=== PATIENT | male | born 1940 | race Caucasian/White ===

== ENCOUNTER 2017-04-16 07:48 | Day surgery (SDC) | payer MEDICARE, BC ==
[~2017-04-16 07:48] MED LIST: ALLERGY10 M1 PO; ASPIRIN 81MG TA81 MG PO; ATENOLOL25 MG PO; BENADRYL 50MG C50 MG PO; CARDURA8 MG PO; CIPROFLOXACIN500 MG PO; LISINOPRIL2.5 MG PO; LORAZEPAM0.5 MG/TAB FT; LORTAB 5/500 501 TAB PO; LOVASTATIN40 MG PO; NATURE'S BLEND400 I1 PO; NYSTATIN AND TR1 CRE TP; PRILOSEC OTC20 MG PO; QUALITY CHOICE600 M1 PO; SEPTRA DS 800 M1 TAB PO; TRICOR145 M1 PO; VOLTAREN1% TP
[2017-04-16 08:20] LABS: LYMPH # 2.1 K/mm3 (0.7-4.5); LYMPH % 26.7 % (10-50)
[2017-04-16 08:26] LABS: BUN 52 mg/dL (7-18)
[2017-04-16 08:27] LABS: GFR (ESTIMATED) 24 ML/MIN (>60)
--- NOTE | 2017-04-16 13:15 | RADIOLOGY REPORT PS360 ---
CARDIAC CATHETERIZATION DATE OF CATHETERIZATION:04/16/2017 12:46 PM PROCEDURES: 1. Left heart catheterization 2. Left ventriculogram 3. Selective coronary angiogram 4. Drug-eluting stent deployment to the proximal mid left anterior descending artery 5. Drug-eluting stent deployment to the ostial proximal large first diagonal artery INDICATION FOR TEST: 1. Coronary artery disease 2. Abnormal high risk noninvasive testing with multi segmental wall motion abnormality and depressed ejection fraction 3. Angina pectoris class III and IV Informed consent was obtained prior to the procedure. COMPLICATIONS: None ESTIMATED BLOOD LOSS: Less than 10 ml. TECHNIQUE: One percent lidocaine was used to anesthetize the right groin. The right femoral artery was accessed via the Seldinger technique. A 4-Arabic sheath was placed in the right femoral artery. A JL 4 JR4 catheter were used to perform left heart catheterization left ventriculogram and selective coronary angiography. At the end of the diagnostic angiogram 9,000 units of heparin was administered intravenously and the ACT was initially out of range over 400. The closing ACT at the end of the interventional procedure was 334 seconds. After the 4 Arabic sheath was exchanged for a 6 Arabic sheath in EBU 3.75 guide catheter was placed in the left main artery is PT extra-support wire was placed in the distal LAD. A 3 mm x 30 mm resolute Flint stent was placed across the lesion within suddenly patient became awake very combative disoriented in started sitting up straight on the table. It took 6 different personnel to hold patient down. Versed was given while patient was in a very disturbed delirious highly combative state screaming and yelling. Anesthesia was summoned to the [employer] stat and propofol was eventually given under anesthesia distraction allowing patient to become sedate. This whole or deal took approximately 10 minutes. Following this the stent was taken back from the guide catheter and placed back into the proximal mid LAD and deployed at 20 reyna. An additional 3 mm x 12 mm resolute Flint stent was placed distal to the first stent overlapping the stent and deployed at 16 reyna the balloon was brought back and measures to 20 reyna. The wire was then pulled back placed in the first diagonal artery and a 2.5 x 2 mm balloon was taken to 16 reyna to predilate. Following this a 3 mm x 15 mm resolute Santiago stent was placed in the proximal LAD extending into the first diagonal artery and deployed at 20 reyna. The wire was then pulled back and placed down into the LAD and a 3.25 x 12 mm noncompliant balloon was deployed at 20 reyna in the proximal and mid LAD crossing the large first diagonal artery. Excellent angiographic results were obtained with LILIAN-3 flow down the vessel before and after the procedure. At the end of procedure the apparatus was removed the groin is reprepped closure changed sheath was removed good hemostasis was achieved using Angio-Seal device patient transferred the postop holding area in stable condition ANGIOGRAPHIC RESULTS: 1. The left main artery is ostially normal with a distal 20% tapering. 2. The left anterior descending artery has a proximal eccentric 20-30% stenosis followed by a concentric 80% stenosis immediately after a large first diagonal artery. There are additional 40% mid vessel stenoses. The first diagonal artery is a large 3 mm branch and has an ostial 70-80% stenosis followed by an additional mid vessel eccentric 50% stenosis. 3. The circumflex artery gives rise to a high first obtuse marginal artery which has proximal 40 and 30% stenoses with a 99% stenosis in the second obtuse marginal artery 4. The right coronary artery is a large dominant vessel and has a mid vessel concentric 40% stenosis with mild vascular ectasia distally. The posterior descending artery has 30% stenoses 5. The BRANCH ventriculogram reveals moderate left ventricular dilatation with reduced ejection fraction estimated at 40% 6. The left ventricular end-diastolic pressure severely elevated at 35 mmHg IMPRESSION: 1. Severe 2 vessel coronary artery disease as described above 2. Successful stenting the proximal and mid LAD severe disease reduced to less than 10% with 2 drug-eluting stents 3. Successful drug-eluting stenting of the ostial proximal large first diagonal artery severe disease reduced to less than 10% with 1 drug-eluting stent the bifurcating manner as described above 4. Persistent severe stenosis in the second obtuse marginal artery 5. Left ventricular dilatation with reduced ejection fraction 6. Severely elevated LVEDP PLAN: 1. Length and aspirin 2. Patient requires diuresis because of his elevated LVEDP 3. I would like for him to be monitored overnight because of his high risk procedure and chronic renal failure creatinine 2.6 and systolic heart failure. 4. Standard therapy for systolic heart failure 5. In 2-4 weeks patient will be brought back to the [employer] [facility] will undergo stenting of the circumflex artery. Patient has severe left ventricular dysfunction and would benefit from complete revascularization. Because of his elevated creatinine I did not want to subject him to any additional contrast used. This must be done in a staged procedure for multiple patient safety 6. Cardiac Rehabilitation 7. LDL less than 55 8. Avoidance of tobacco products 9. Chemistry panel in the morning to assess creatinine
[2017-04-16 17:28] VITALS: BP 144/86
== END 2017-04-16 17:32 | disposition home or self-care (01) ==
LOC: CATHLAB 07:48
PROVIDERS: Internal Medicine
PROC: B2111ZZ Fluoroscopy of Multiple Coronary Arteries using Low Osmolar Contrast (ICD-10-PCS; 2017-04-16)
PROC: B2151ZZ Fluoroscopy of Left Heart using Low Osmolar Contrast (ICD-10-PCS; 2017-04-16)
PROC: 027035Z Dilation of Coronary Artery, One Artery with Two Drug-eluting Intraluminal Devices, Percutaneous Approach (ICD-10-PCS; 2017-04-16)
PROC: 4A023N7 Measurement of Cardiac Sampling and Pressure, Left Heart, Percutaneous Approach (ICD-10-PCS; principal; 2017-04-16 09:45)
DX: I25.119 Atherosclerotic heart disease of native coronary artery with unspecified angina pectoris (principal); R07.9 Chest pain, unspecified; I50.30 Unspecified diastolic (congestive) heart failure; E11.9 Type 2 diabetes mellitus without complications; R00.2 Palpitations; I27.2 Other secondary pulmonary hypertension; N18.3 Chronic kidney disease, stage 3 (moderate)
CPT/HCPCS: C1725; C1760; C1769; C1876; C1894; J1644; J2405; Q9967

== ENCOUNTER → 2017-06-01 | Outpatient (CLI) | payer MEDICARE, BC ==
--- NOTE | 2017-06-01 21:32 | RADIOLOGY REPORT PS360 ---
PROCEDURE: 2-D M-mode and color Doppler study INDICATIONS FOR THE TEST: Chest pain COPD Heart Murmur+ Tobacco Smokingex Palpitations+ Fatigue Syncope Edema+ Hypertension+Diabetes Mellitus+ Rheumatic Fever? SOB+ALBARADO+Obesity Hyperlipidemia+ Family History HD+ Additional History 5 stents, CAD, dizziness, quit smoking 5 years ago PATIENT INFORMATION HEIGHT: 75 WEIGHT: 225 GENDER: Male B/P: 168/72 2-D/M-MODE INTERPRETATION: 2-D MEASUREMENTS OBSERVED VALUES IN CMS Right Ventricular Dimension (RVDd) 2.4 Interventricular Septum (Thickness)(IVsd) 1.3 Left Ventricular Internal Dimensions(LVIDd) 6.6 Left Ventricular Posterior Wall (Thickness)(LVPWd) 1.3 Aortic Root 2.9 Aortic Cusp Separation 1.8 Left Atrial Dimensions (LAD) 4.7 2D 1. Left atrium is moderately enlarged, left ventricle is mildly dilated, there is mild concentric left ventricular hypertrophy, visually estimated ejection fraction 40% there is marked hypo to akinesis involving the basal septum, inferior and inferolateral wall. 2. The right atrium and right ventricle are relatively normal size and function. 3. The aortic valve is minimally thickened and calcified, leaflet continue to display mobility. 4. The mitral and tricuspid valve leaflets are minimally thickened. 5. The pulmonic valve is poorly visualized. 6. No significant pericardial effusion noted. DOPPLER INTERROGATION: Doppler interrogation of the aortic, mitral and tricuspid valvular presence of mild aortic, mild mitral and tricuspid regurgitation, tricuspid and enteric velocity insufficient for calculation of the right ventricular systolic pressure, grade 1 diastolic dysfunction seen with tissue Doppler evidence of raised left atrial pressure. CONCLUSION: 1. Moderately enlarged left atrium, mildly dilated left ventricle, mild concentric left ventricular hypertrophy, visually estimated ejection fraction 40% with multiple segmental wall motion abnormality described above, grade 1 diastolic dysfunction seen with tissue Doppler evidence of raised left atrial pressure. 2. Mild aortic, mild mitral and tricuspid regurgitation. 3. No significant pericardial effusion noted.
== END ==
LOC: RT 12:46
DX: R06.02 Shortness of breath (principal); E78.5 Hyperlipidemia, unspecified; N18.9 Chronic kidney disease, unspecified; I10 Essential (primary) hypertension; I25.10 Atherosclerotic heart disease of native coronary artery without angina pectoris

== ENCOUNTER 2017-08-06 16:12 | Emergency (ER) | payer MEDICARE, BC ==
[~2017-08-06] VITALS: Ht 182.9 cm; Wt 99.8 kg
--- OUTSIDE RECORDS SUMMARY | 2017-08-06 16:27 | External Medical Summary Rpt | CCD ---
Author Author , HEATHER ROMERO Address Unknown Phone [email or web address] Purpose Continuity of Care Document - 04-02-2017 through 2016 Problems Code Diagnosis DOS Provider Status E03.9 HYPOTHYROID ISM, UNSPECIFIED R06.02 SHORTNESS OF BREATH R07.9 CHEST PAIN, UNSPECIFIED Results Labs Lab Lab Date Result Refere Interp Status Commen Order Detail nces retati t Range on Urinalysis dipstick W Reflex Microscopic panel in Urine (04-29-2017 10:15) Bacteri TRACE O complet a 017 ed [Presen 10:15 ce] in Urine sedimen t by Light microsc opy Erythro NONE 0 complet cytes 017 ed [Presen 10:15 ce] in Urine sedimen t by Light microsc opy Epithel OCC OCC complet ial 017 ed cells.s 10:15 quamous [Presen ce] in Urine sedimen t by Microsc opy high power field Urinalysis dipstick W Reflex Microscopic panel in Urine (04-29-2017 10:15) Appeara CLEAR CLEAR complet nce of 017 ed Urine 10:15 Bilirub NEGATIV NEG complet in 017 E ed [Presen 10:15 ce] in Urine by Test strip Erythro NEGATIV NEG complet cytes 017 E ed [Presen 10:15 ce] in Urine Color YELLOW YELLOW complet of 017 ed Urine 10:15 Ketones NEGATIV NEG complet 017 E ed [Presen 10:15 ce] in Urine by Automat ed test strip Mucus NEGATIV NEG complet [Presen 017 E ed ce] in 10:15 Urine sedimen t by Light microsc opy Nitrite NEGATIV NEG complet 017 E ed [Presen 10:15 ce] in Urine by Test strip Urobili 0.2 NEG complet david 017 ed [Presen 10:15 ce] in Urine by Test strip
--- OUTSIDE RECORDS SUMMARY | 2017-08-06 16:27 | External Medical Summary Rpt | CCD ---
Author Author [facility] Address Unknown Phone Unavailable Purpose Continuity of Care Document - through 2016
--- OUTSIDE RECORDS SUMMARY | 2017-08-06 16:27 | External Medical Summary Rpt | CCD ---
Demographics Preferred Language Citizen Of [place] Marital Status Unknown Zoroastrianism Affiliation Unknown Race Unknown Ethnic Group Unknown Author Author , HEATHER ROMERO Address Unknown Phone Immunization No patient found.
--- OUTSIDE RECORDS SUMMARY | 2017-08-06 16:27 | External Medical Summary Rpt | CCD ---
Demographics Preferred Language Tongan Marital Status Unknown Anabaptism Affiliation Unknown Race Unknown Ethnic Group Unknown Author Author , HEATHER ROMERO Address Unknown Phone Immunization No patient found.
--- OUTSIDE RECORDS SUMMARY | 2017-08-06 16:27 | External Medical Summary Rpt | CCD ---
Author Author , HEATHER ROMERO Address Unknown Phone [email or web address] Purpose Continuity of Care Document - 04-02-2017 [...]
--- OUTSIDE RECORDS SUMMARY | 2017-08-06 16:28 | External Medical Summary Rpt ---
Author Author STEVANJAN Villa, [employer] Address Unknown Phone Unavailable Results Basic metabolic panel in Blood Observa Value Referen Units Interpr Notes Date tion ce etation Range Urea 7 - 18 mg/dL High No Sep 21 nitrogen informati 2017 2:01 [Mass/vol on in PM ume] in source Serum or data Plasma Calcium 8.5 - mg/dL Low No Sep 21 [Mass/vol 10.1 informati 2017 2:01 ume] in on in PM Serum or source Plasma data Chloride 98 - 107 mmoL/L Normal No Sep 21 [Moles/vo informati 2017 2:01 lume] in on in PM Serum or source Plasma data Carbon 21.0 - mmoL/L Normal No Sep 21 dioxide, 32.0 informati 2017 2:01 total on in PM [Moles/vo source lume] in data Serum or Plasma Creatinin 0.70 - mg/dL High No Sep 21 e 1.30 informati 2017 2:01 [Mass/vol on in PM ume] in source Serum or data Plasma Estimated >60 ML/MIN No REFERENCE Sep 21 informati RANGE: 2017 2:01 glomerula on in >60 PM r source ML/MIN/1. filtratio data 73 SQUARE n rate METERSIf (GF this patient is -A merican, then multiply theresult by 1.210. Glucose 74 - 106 mg/dL High No Sep 21 [Mass/vol informati 2017 2:01 ume] in on in PM Serum or source Plasma data Potassium 3.5 - 5.1 mmoL/L Normal No Sep 21 informati 2017 2:01 [Moles/vo on in PM lume] in source Serum or data Plasma Sodium 136 - 145 mmoL/L Normal No Sep 21 [Moles/vo informati 2017 2:01 lume] in on in PM Serum or source Plasma data CBC W Auto Differential panel in Blood Observa Value Referen Units Interpr Notes Date tion ce etation Range Basophils 0 - 0.2 K/MM3 Normal No Sep 21 informati 2017 2:01 [#/volume on in PM ] in source Blood by data Automated count Basophils 0.1 - 2.0 % Normal No Sep 21 /100 informati 2016 2:01 leukocyte on in PM s in source Blood by data Automated count Eosinophi 0.0 - 0.4 K/mm3 Normal No Sep 21 ls informati 2016 2:01 [#/volume on in PM ] in source Blood by data Automated count Eosinophi 0.1 - % Normal No Sep 21 ls/100 12.0 informati 2016 2:01 leukocyte on in PM s in source Blood by data Automated count Granulocy 1.3 - 8.0 K/mm3 Normal No Sep 21 rufina informati 2016 2:01 [#/volume on in PM ] in source Blood by data Automated count Granulocy 37.0 - % Normal No Sep 21 rufina/100 80.0 informati 2016 2:01 leukocyte on in PM s in source Blood by data Automated count Hematocri 42.0 - % Low No Sep 21 t [Volume 52.0 informati 2016 2:01 on in PM Fraction] source of Blood data Hemoglobi 14.1 - g/dL Low No Sep 21 n 18.0 informati 2016 2:01 [Mass/vol on in PM ume] in source Blood data Lymphocyt 0.7 - 4.5 K/mm3 Normal No Sep 21 es informati 2017 2:01 [#/volume on in PM ] in source Unspecifi data ed specimen by Automated count Lymphocyt 10 - 50 % Normal No Sep 21 es informati 2017 2:01 [#/volume on in PM ] in source Unspecifi data ed specimen by Automated count Erythrocy 27 - 31.2 pg Normal No Sep 21 te mean informati 2017 2:01 corpuscul on in PM ar source hemoglobi data n [Entitic mass] Erythrocy 31.8 - g/dl Normal No Sep 21 te mean 35.4 informati 2017 2:01 corpuscul on in PM ar source hemoglobi data n concentra tion [Mass/vol ume] by Automated count Erythrocy 82.2 - fl Normal No Sep 21 te mean 97.8 informati 2016 2:01 corpuscul on in PM ar volume source [Entitic data volume] by Automated count Monocytes 0.1 - 1.0 K/mm3 Normal No Sep 21 informati 2017 2:01 [#/volume on in PM ] in source Blood by data Automated count Monocytes 1.7 - 9.3 % Normal No Sep 21 /100 informati 2017 2:01 leukocyte on in PM s in source Blood by data Automated count Platelet 7.4 - fl Low No May 21 mean 10.4 informati 2017 2:01 volume on in PM [Entitic source volume] data in Blood by Automated count Platelets 142 - 424 K/mm3 Normal No Sep 21 informati 2017 2:01 [#/volume on in PM ] in source Blood data Erythrocy 4.6 - 6.2 M/mm3 Low No Sep 21 rufina informati 2017 2:01 [#/volume on in PM ] in source Amniotic data fluid Erythrocy 11.5 - % Normal No May 21 te 17.5 informati 2017 2:01 distribut on in PM ion width source [Entitic data volume] by Automated count Leukocyte 4.8 - K/MM3 Normal No May 21 s 10.8 informati 2016 2:01 [#/volume on in PM ] in source Blood data Basic metabolic panel in Blood Observa Value Referen Units Interpr Notes Date tion ce etation Range Urea 7 - 18 mg/dL High No Apr 30 nitrogen informati 2016 7:12 [Mass/vol on in AM ume] in source Serum or data Plasma Calcium 8.5 - mg/dL Normal No Apr 30 [Mass/vol 10.1 informati 2017 7:12 ume] in on in AM Serum or source Plasma data Chloride 98 - 107 mmoL/L High No Apr 30 [Moles/vo informati 2016 7:12 lume] in on in AM Serum or source Plasma data Carbon 21.0 - mmoL/L Normal No Apr 30 dioxide, 32.0 informati 2016 7:12 total on in AM [Moles/vo source lume] in data Serum or Plasma Creatinin 0.70 - mg/dL High No Apr 30 e 1.30 informati 2016 7:12 [Mass/vol on in AM ume] in source Serum or data Plasma Creatinin 50 - 200 ML/MIN Low No Apr 30 e renal informati 2016 7:12 clearance on in AM source predicted data by Cockcroft -Gault formula Estimated >60 ML/MIN No REFERENCE Apr 30 informati RANGE: 2017 7:12 glomerula on in >60 AM r source ML/MIN/1. filtratio data 73 SQUARE n rate METERSIf (GF this patient is -A merican, then multiply theresult by 1.210. Glucose 74 - 106 mg/dL High No Apr 30 [Mass/vol informati 2016 7:12 ume] in on in AM Serum or source Plasma data Potassium 3.5 - 5.1 mmoL/L Normal No Apr 30 informati 2016 7:12 [Moles/vo on in AM lume] in source Serum or data Plasma Sodium 136 - 145 mmoL/L Normal No Apr 30 [Moles/vo informati 2016 7:12 lume] in on in AM Serum or source Plasma data Urinalysis dipstick W Reflex Microscopic panel in Urine Observa Value Referen Units Interpr Notes Date tion ce etation Range Collected by nurse? Y Hold specimen in OE? N Appeara CLEAR CLEAR No No No Apr 29 nce of informa informa informa 2016 Urine tion in tion in tion in 10:15 source source source AM data data data Bacteri TRACE O No No No Apr 29 a informa informa informa 2016 [Presen tion in tion in tion in 10:15 ce] in source source source AM Urine data data data sedimen t by Light microsc opy Bilirub NEGATIV NEG No No No Apr 29 in E informa informa informa 2016 [Presen tion in tion in tion in 10:15 ce] in source source source AM Urine data data data by Test strip Erythro NEGATIV NEG No No No Apr 29 cytes E informa informa informa 2016 [Presen tion in tion in tion in 10:15 ce] in source source source AM Urine data data data Color YELLOW YELLOW No No No Apr 29 of informa informa informa 2016 Urine tion in tion in tion in 10:15 source source source AM data data data Glucose NEG No No No Apr 29 [Mass/vol informati informati informati 2016 ume] in on in on in on in 10:15 AM Urine by source source source Test data data data strip Ketones NEGATIV NEG mg/dL No No Apr 29 E informa informa 2016 [Presen tion in tion in 10:15 ce] in source source AM Urine data data by Automat ed test strip Mucus NEGATIV NEG No No No Apr 29 [Presen E informa informa informa 2017 ce] in tion in tion in tion in 10:15 Urine source source source AM sedimen data data data t by Light microsc opy Nitrite NEGATIV NEG No No No Apr 29 E informa informa informa 2016 [Presen tion in tion in tion in 10:15 ce] in source source source AM Urine data data data by Test strip pH of 5.0 - 8.5 No Normal No Apr 29 Urine informati informati 2017 on in on in 10:15 AM source source data data Protein NEG mg/dL High No Apr 29 [Mass/vol informati 2017 ume] in on in 10:15 AM Urine by source Automated data test strip Erythro NONE 0 rbc/hpf No No Apr 29 cytes informa informa 2016 [Presen tion in tion in 10:15 ce] in source source AM Urine data data sedimen t by Light microsc opy Specific 1.005 - No Normal No Apr 29 gravity 1.030 informati informati 2016 of Urine on in on in 10:15 AM source source data data Epithel OCC OCC #/hpf No No Apr 29 ial informa informa 2017 cells.s tion in tion in 10:15 quamous source source AM data data [Presen ce] in Urine sedimen t by Microsc opy high power field Urobili 0.2 NEG E.U./dL No No Apr 29 nogen informa informa 2016 [Presen tion in tion in 10:15 ce] in source source AM Urine data data by Test strip Leukocyte O wbc/hpf No No Apr 29 s informati informati 2016 [#/volume on in on in 10:15 AM ] in source source Urine data data Urinalysis dipstick W Reflex Microscopic panel in Urine Observa Value Referen Units Interpr Notes Date tion ce etation Range Collected by nurse? Y Hold specimen in OE? N Appeara CLEAR CLEAR No No No Apr 29 nce of informa informa informa 2017 Urine tion in tion in tion in 10:15 source source source AM data data data Bilirub NEGATIV NEG No No No Apr 29 in E informa informa informa 2017 [Presen tion in tion in tion in 10:15 ce] in source source source AM Urine data data data by Test strip Erythro NEGATIV NEG No No No Apr 29 cytes E informa informa informa 2017 [Presen tion in tion in tion in 10:15 ce] in source source source AM Urine data data data Color YELLOW YELLOW No No No Apr 29 of informa informa informa 2017 Urine tion in tion in tion in 10:15 source source source AM data data data Glucose NEG No No No Apr 29 [Mass/vol informati informati informati 2017 ume] in on in on in on in 10:15 AM Urine by source source source Test data data data strip Ketones NEGATIV NEG mg/dL No No Apr 29 E informa informa 2017 [Presen tion in tion in 10:15 ce] in source source AM Urine data data by Automat ed test strip Mucus NEGATIV NEG No No No Apr 29 [Presen E informa informa informa 2017 ce] in tion in tion in tion in 10:15 Urine source source source AM sedimen data data data t by Light microsc opy Nitrite NEGATIV NEG No No No Apr 29 E informa informa informa 2016 [Presen tion in tion in tion in 10:15 ce] in source source source AM Urine data data data by Test strip pH of 5.0 - 8.5 No Normal No Apr 29 Urine informati informati 2017 on in on in 10:15 AM source source data data Protein NEG mg/dL High No Apr 29 [Mass/vol informati 2016 ume] in on in 10:15 AM Urine by source Automated data test strip Specific 1.005 - No Normal No Apr 29 gravity 1.030 informati informati 2017 of Urine on in on in 10:15 AM source source data data Urobili 0.2 NEG E.U./dL No No Apr 29 nogen informa informa 2017 [Presen tion in tion in 10:15 ce] in source source AM Urine data data by Test strip Activated clotting time in Blood by Coagulation assay Observa Value Referen Units Interpr Notes Date tion ce etation Range Activated 74 - 125 SEC High No Apr 29 clotting alert informati 2016 9:01 time in on in AM Blood by source Coagulati data on assay Activated clotting time in Blood by Coagulation assay Observa Value Referen Units Interpr Notes Date tion ce etation Range Activated 74 - 125 SEC High No Apr 29 clotting alert informati 2016 8:32 time in on in AM Blood by source Coagulati data on assay Basic metabolic panel in Blood Observa Value Referen Units Interpr Notes Date tion ce etation Range Urea 7 - 18 mg/dL High No Apr 29 nitrogen informati 2016 6:55 [Mass/vol on in AM ume] in source Serum or data Plasma Calcium 8.5 - mg/dL Normal Apr 29 [Mass/vol 10.1 informati 2016 6:55 ume] in on in AM Serum or source Plasma data Chloride 98 - 107 mmoL/L Normal Apr 29 [Moles/vo informati 2016 6:55 lume] in on in AM Serum or source Plasma data Carbon 21.0 - mmoL/L Normal Apr 29 dioxide, 32.0 informati 2016 6:55 total on in AM [Moles/vo source lume] in data Serum or Plasma Creatinin 0.70 - mg/dL High No Apr 29 e 1.30 informati 2016 6:55 [Mass/vol on in AM ume] in source Serum or data Plasma Estimated >60 ML/MIN No REFERENCE Apr 29 informati RANGE: 2017 6:55 glomerula on in >60 AM r source ML/MIN/1. filtratio data 73 SQUARE n rate METERSIf (GF this patient is -A merican, then multiply theresult by 1.210. Glucose 74 - 106 mg/dL High No Apr 29 [Mass/vol informati 2016 6:55 ume] in on in AM Serum or source Plasma data Potassium 3.5 - 5.1 mmoL/L Normal No Apr 29 informati 2016 6:55 [Moles/vo on in AM lume] in source Serum or data Plasma Sodium 136 - 145 mmoL/L Normal Apr 29 [Moles/vo informati 2016 6:55 lume] in on in AM Serum or source Plasma data CBC W Auto Differential panel in Blood Observa Value Referen Units Interpr Notes Date tion ce etation Range Basophils 0 - 0.2 K/MM3 Normal No Apr 29 informati 2016 6:55 [#/volume on in AM ] in source Blood by data Automated count Basophils 0.1 - 2.0 % Normal No Apr 29 /100 informati 2017 6:55 leukocyte on in AM s in source Blood by data Automated count Eosinophi 0.0 - 0.4 K/mm3 Normal Apr 29 ls informati 2017 6:55 [#/volume on in AM ] in source Blood by data Automated count Eosinophi 0.1 - % Normal No Apr 29 ls/100 12.0 informati 2017 6:55 leukocyte on in AM s in source Blood by data Automated count Granulocy 1.3 - 8.0 K/mm3 Normal No Apr 29 rufina informati 2017 6:55 [#/volume on in AM ] in source Blood by data Automated count Granulocy 37.0 - % Normal No Apr 29 rufina/100 80.0 informati 2017 6:55 leukocyte on in AM s in source Blood by data Automated count Hematocri 42.0 - % Low No Apr 29 t [Volume 52.0 informati 2017 6:55 on in AM Fraction] source of Blood data Hemoglobi 14.1 - g/dL Low No Apr 29 n 18.0 informati 2017 6:55 [Mass/vol on in AM ume] in source Blood data Lymphocyt 0.7 - 4.5 K/mm3 Normal No Apr 29 es informati 2017 6:55 [#/volume on in AM ] in source Unspecifi data ed specimen by Automated count Lymphocyt 10 - 50 % Normal No Apr 29 es informati 2017 6:55 [#/volume on in AM ] in source Unspecifi data ed specimen by Automated count Erythrocy 27 - 31.2 pg Normal No Apr 29 te mean informati 2016 6:55 corpuscul on in AM ar source hemoglobi data n [Entitic mass] Erythrocy 31.8 - g/dl Normal No Apr 29 te mean 35.4 informati 2016 6:55 corpuscul on in AM ar source hemoglobi data n concentra tion [Mass/vol ume] by Automated count Erythrocy 82.2 - fl Normal No Apr 29 te mean 97.8 informati 2017 6:55 corpuscul on in AM ar volume source [Entitic data volume] by Automated count Monocytes 0.1 - 1.0 K/mm3 Normal No Apr 29 informati 2017 6:55 [#/volume on in AM ] in source Blood by data Automated count Monocytes 1.7 - 9.3 % Normal No Apr 29 /100 informati 2017 6:55 leukocyte on in AM s in source Blood by data Automated count Platelet 7.4 - fl Normal No Apr 29 mean 10.4 informati 2017 6:55 volume on in AM [Entitic source volume] data in Blood by Automated count Platelets 142 - 424 K/mm3 Normal No Apr 29 informati 2016 6:55 [#/volume on in AM ] in source Blood data Erythrocy 4.6 - 6.2 M/mm3 Low No Apr 29 rufina informati 2016 6:55 [#/volume on in AM ] in source Amniotic data fluid Erythrocy 11.5 - % Normal No Apr 29 te 17.5 informati 2016 6:55 distribut on in AM ion width source [Entitic data volume] by Automated count Leukocyte 4.8 - K/MM3 Normal No Apr 29 s 10.8 informati 2016 6:55 [#/volume on in AM ] in source Blood data Basic metabolic panel in Blood Observa Value Referen Units Interpr Notes Date tion ce etation Range Urea 7 - 18 mg/dL High No Apr 28 nitrogen informati 2016 3:15 [Mass/vol on in PM ume] in source Serum or data Plasma Calcium 8.5 - mg/dL Normal Apr 28 [Mass/vol 10.1 informati 2016 3:15 ume] in on in PM Serum or source Plasma data Chloride 98 - 107 mmoL/L Normal No Apr 28 [Moles/vo informati 2016 3:15 lume] in on in PM Serum or source Plasma data Carbon 21.0 - mmoL/L Normal No Apr 28 dioxide, 32.0 informati 2016 3:15 total on in PM [Moles/vo source lume] in data Serum or Plasma Creatinin 0.70 - mg/dL High No Apr 28 e 1.30 informati 2016 3:15 [Mass/vol on in PM ume] in source Serum or data Plasma Estimated >60 ML/MIN No REFERENCE Apr 28 informati RANGE: 2017 3:15 glomerula on in >60 PM r source ML/MIN/1. filtratio data 73 SQUARE n rate METERSIf (GF this patient is -A merican, then multiply theresult by 1.210. Glucose 74 - 106 mg/dL High No Apr 28 [Mass/vol informati 2016 3:15 ume] in on in PM Serum or source Plasma data Potassium 3.5 - 5.1 mmoL/L Normal No Apr 28 informati 2016 3:15 [Moles/vo on in PM lume] in source Serum or data Plasma Sodium 136 - 145 mmoL/L Normal No Apr 28 [Moles/vo informati 2016 3:15 lume] in on in PM Serum or source Plasma data CBC W Auto Differential panel in Blood Observa Value Referen Units Interpr Notes Date tion ce etation Range Basophils 0 - 0.2 K/MM3 Normal No Apr 28 inform2016 3:15 [#/volume on in PM ] in source Blood by data Automated count Basophils 0.1 - 2.0 % Normal No Apr 28 /100 informati 2016 3:15 leukocyte on in PM s in source Blood by data Automated count Eosinophi 0.0 - 0.4 K/mm3 Normal No Apr 28 ls informati 2016 3:15 [#/volume on in PM ] in source Blood by data Automated count Eosinophi 0.1 - % Normal No Apr 28 ls/100 12.0 informati 2016 3:15 leukocyte on in PM s in source Blood by data Automated count Granulocy 1.3 - 8.0 K/mm3 Normal No Apr 28 rufina informati 2016 3:15 [#/volume on in PM ] in source Blood by data Automated count Granulocy 37.0 - % Normal No Apr 28 rufina/100 80.0 informati 2016 3:15 leukocyte on in PM s in source Blood by data Automated count Hematocri 42.0 - % Low No Apr 28 t [Volume 52.0 informati 2016 3:15 on in PM Fraction] source of Blood data Hemoglobi 14.1 - g/dL Low No Apr 28 n 18.0 informati 2016 3:15 [Mass/vol on in PM ume] in source Blood data Lymphocyt 0.7 - 4.5 K/mm3 Normal No Apr 28 es informati 2016 3:15 [#/volume on in PM ] in source Unspecifi data ed specimen by Automated count Lymphocyt 10 - 50 % Normal No Apr 28 es informati 2016 3:15 [#/volume on in PM ] in source Unspecifi data ed specimen by Automated count Erythrocy 27 - 31.2 pg Normal No Apr 28 te mean informati 2016 3:15 corpuscul on in PM ar source hemoglobi data n [Entitic mass] Erythrocy 31.8 - g/dl Normal No Apr 28 te mean 35.4 informati 2016 3:15 corpuscul on in PM ar source hemoglobi data n concentra tion [Mass/vol ume] by Automated count Erythrocy 82.2 - fl Normal No Apr 28 te mean 97.8 informati 2016 3:15 corpuscul on in PM ar volume source [Entitic data volume] by Automated count Monocytes 0.1 - 1.0 K/mm3 Normal No Apr 28 informati 2016 3:15 [#/volume on in PM ] in source Blood by data Automated count Monocytes 1.7 - 9.3 % Normal No Apr 28 /100 informati 2016 3:15 leukocyte on in PM s in source Blood by data Automated count Platelet 7.4 - fl Low No Apr 28 mean 10.4 informati 2016 3:15 volume on in PM [Entitic source volume] data in Blood by Automated count Platelets 142 - 424 K/mm3 No Apr 28 informati informati 2016 3:15 [#/volume on in on in PM ] in source source Blood data data Erythrocy 4.6 - 6.2 M/mm3 Low No Apr 28 rufina informati 2016 3:15 [#/volume on in PM ] in source Amniotic data fluid Erythrocy 11.5 - % Normal Apr 28 te 17.5 informati 2016 3:15 distribut on in PM ion width source [Entitic data volume] by Automated count Leukocyte 4.8 - K/MM3 Normal Apr 28 s 10.8 informati 2016 3:15 [#/volume on in PM ] in source Blood data Activated clotting time in Blood by Coagulation assay Observa Value Referen Units Interpr Notes Date tion ce etation Range Activated 74 - 125 SEC High No Apr 16 clotting alert 2016 time in on in 12:38 PM Blood by source Coagulati data on assay Basic metabolic panel in Blood Observa Value Referen Units Interpr Notes Date tion ce etation Range Urea 7 - 18 mg/dL High No Apr 16 nitrogen informati 2016 8:00 [Mass/vol on in AM ume] in source Serum or data Plasma Calcium 8.5 - mg/dL Normal No Apr 16 [Mass/vol 10.1 informati 2016 8:00 ume] in on in AM Serum or source Plasma data Chloride 98 - 107 mmoL/L High No Apr 16 [Moles/vo informati 2016 8:00 lume] in on in AM Serum or source Plasma data Carbon 21.0 - mmoL/L Normal No Apr 16 dioxide, 32.0 informati 2016 8:00 total on in AM [Moles/vo source lume] in data Serum or Plasma Creatinin 0.70 - mg/dL High No Apr 16 e 1.30 informati 2016 8:00 [Mass/vol on in AM ume] in source Serum or data Plasma Estimated >60 ML/MIN No REFERENCE Apr 16 informati RANGE: 2017 8:00 glomerula on in >60 AM r source ML/MIN/1. filtratio data 73 SQUARE n rate METERSIf (GF this patient is -A merican, then multiply theresult by 1.210. Glucose 74 - 106 mg/dL Normal No Apr 16 [Mass/vol informati 2016 8:00 ume] in on in AM Serum or source Plasma data Potassium 3.5 - 5.1 mmoL/L Normal No Apr 16 inform2016 8:00 [Moles/vo on in AM lume] in source Serum or data Plasma Sodium 136 - 145 mmoL/L Normal No Apr 16 [Moles/vo informati 2016 8:00 lume] in on in AM Serum or source Plasma data CBC W Auto Differential panel in Blood Observa Value Referen Units Interpr Notes Date tion ce etation Range Basophils 0 - 0.2 K/MM3 Normal No Apr 16 inform2016 8:00 [#/volume on in AM ] in source Blood by data Automated count Basophils 0.1 - 2.0 % Normal No Apr 16 / informati 2016 8:00 leukocyte on in AM s in source Blood by data Automated count Eosinophi 0.0 - 0.4 K/mm3 Normal No Apr 16 ls ati 2016 8:00 [#/volume on in AM ] in source Blood by data Automated count Eosinophi 0.1 - % Normal No Apr 16 ls/100 12.0 informati 2016 8:00 leukocyte on in AM s in source Blood by data Automated count Granulocy 1.3 - 8.0 K/mm3 Normal No Apr 16 rufina informati 2016 8:00 [#/volume on in AM ] in source Blood by data Automated count Granulocy 37.0 - % Normal No Apr 16 rufina/100 80.0 informati 2016 8:00 leukocyte on in AM s in source Blood by data Automated count Hematocri 42.0 - % Low No Apr 16 t [Volume 52.0 informati 2016 8:00 on in AM Fraction] source of Blood data Hemoglobi 14.1 - g/dL Low No Apr 16 n 18.0 informati 2016 8:00 [Mass/vol on in AM ume] in source Blood data Lymphocyt 0.7 - 4.5 K/mm3 Normal No Apr 16 es informati 2016 8:00 [#/volume on in AM ] in source Unspecifi data ed specimen by Automated count Lymphocyt 10 - 50 % Normal No Apr 16 es informati 2016 8:00 [#/volume on in AM ] in source Unspecifi data ed specimen by Automated count Erythrocy 27 - 31.2 pg Normal No Apr 16 te mean informati 2016 8:00 corpuscul on in AM ar source hemoglobi data n [Entitic mass] Erythrocy 31.8 - g/dl Normal No Apr 16 te mean 35.4 informati 2016 8:00 corpuscul on in AM ar source hemoglobi data n concentra tion [Mass/vol ume] by Automated count Erythrocy 82.2 - fl Normal No Apr 16 te mean 97.8 informati 2016 8:00 corpuscul on in AM ar volume source [Entitic data volume] by Automated count Monocytes 0.1 - 1.0 K/mm3 Normal No Apr 16 informati 2016 8:00 [#/volume on in AM ] in source Blood by data Automated count Monocytes 1.7 - 9.3 % Normal No Apr 16 /100 informati 2017 8:00 leukocyte on in AM s in source Blood by data Automated count Platelet 7.4 - fl Normal No Apr 16 mean 10.4 informati 2016 8:00 volume on in AM [Entitic source volume] data in Blood by Automated count Platelets 142 - 424 K/mm3 Normal No Apr 16 informati 2016 8:00 [#/volume on in AM ] in source Blood data Erythrocy 4.6 - 6.2 M/mm3 Low No Apr 16 rufina informati 2017 8:00 [#/volume on in AM ] in source Amniotic data fluid Erythrocy 11.5 - % Normal No Apr 16 te 17.5 informati 2016 8:00 distribut on in AM ion width source [Entitic data volume] by Automated count Leukocyte 4.8 - K/MM3 Normal No Apr 16 s 10.8 informati 2016 8:00 [#/volume on in AM ] in source Blood data Basic metabolic panel in Blood Observa Value Referen Units Interpr Notes Date tion ce etation Range Urea 7 - 18 mg/dL High No Apr 13 nitrogen informati 2016 [Mass/vol on in 11:41 AM ume] in source Serum or data Plasma Calcium 8.5 - mg/dL Normal No Apr 13 [Mass/vol 10.1 informati 2016 ume] in on in 11:41 AM Serum or source Plasma data Chloride 98 - 107 mmoL/L Normal No Apr 13 [Moles/vo informati 2016 lume] in on in 11:41 AM Serum or source Plasma data Carbon 21.0 - mmoL/L Normal No Apr 13 dioxide, 32.0 informati 2017 total on in 11:41 AM [Moles/vo source lume] in data Serum or Plasma Creatinin 0.70 - mg/dL High No Apr 13 e 1.30 informati 2016 [Mass/vol on in 11:41 AM ume] in source Serum or data Plasma Estimated >60 ML/MIN No REFERENCE Apr 13 informati RANGE: 2017 glomerula on in >60 11:41 AM r source ML/MIN/1. filtratio data 73 SQUARE n rate METERSIf (GF this patient is -A merican, then multiply theresult by 1.210. Glucose 74 - 106 mg/dL High No Apr 13 [Mass/vol informati 2016 ume] in on in 11:41 AM Serum or source Plasma data Potassium 3.5 - 5.1 mmoL/L Normal No Apr 13 inform2016 [Moles/vo on in 11:41 AM lume] in source Serum or data Plasma Sodium 136 - 145 mmoL/L Normal No Apr 13 [Moles/vo informati 2016 lume] in on in 11:41 AM Serum or source Plasma data Basic metabolic panel in Blood Observa Value Referen Units Interpr Notes Date tion ce etation Range Urea 7 - 18 mg/dL High No Apr 02 nitrogen informati 2016 7:14 [Mass/vol on in AM ume] in source Serum or data Plasma Calcium 8.5 - mg/dL Normal No Apr 02 [Mass/vol 10.1 informati 2016 7:14 ume] in on in AM Serum or source Plasma data Chloride 98 - 107 mmoL/L Normal No Apr 02 [Moles/vo informati 2016 7:14 lume] in on in AM Serum or source Plasma data Carbon 21.0 - mmoL/L Normal No Apr 02 dioxide, 32.0 informati 2016 7:14 total on in AM [Moles/vo source lume] in data Serum or Plasma Creatinin 0.70 - mg/dL High No Apr 02 e 1.30 informati 2016 7:14 [Mass/vol on in AM ume] in source Serum or data Plasma Estimated >60 ML/MIN No REFERENCE Apr 02 informati RANGE: 2017 7:14 glomerula on in >60 AM r source ML/MIN/1. filtratio data 73 SQUARE n rate METERSIf (GF this patient is -A merican, then multiply theresult by 1.210. Glucose 74 - 106 mg/dL Normal No Apr 02 [Mass/vol informati 2016 7:14 ume] in on in AM Serum or source Plasma data Potassium 3.5 - 5.1 mmoL/L High No Apr 02 informati 2016 7:14 [Moles/vo on in AM lume] in source Serum or data Plasma Sodium 136 - 145 mmoL/L Normal No Apr 02 [Moles/vo informati 2016 7:14 lume] in on in AM Serum or source Plasma data Natriutietic peptide B [Mass/volume] in Serum or Plasma Observa Value Referen Units Interpr Notes Date tion ce etation Range Natriutie 0 - 100 pg/mL High No Apr 02 tic informati 2016 7:14 peptide B on in AM source [Mass/vol data ume] in Serum or Plasma Thyroxine (T4) free [Mass/volume] in Serum or Plasma Observa Value Referen Units Interpr Notes Date tion ce etation Range Thyroxine 0.76 - ng/dL Normal No Apr 02 (T4) 1.46 informati 2016 7:14 free on in AM [Mass/vol source ume] in data Serum or Plasma Thyrotropin [Units/volume] in Serum or Plasma Observa Value Referen Units Interpr Notes Date tion ce etation Range Thyrotrop 0.358 - uIU/ml Normal No Apr 02 in 3.740 informati 2016 7:14 [Units/vo on in AM lume] in source Serum or data Plasma
--- OUTSIDE RECORDS SUMMARY | 2017-08-06 16:28 | External Medical Summary Rpt ---
Author Author STEVANJAN Villa, [employer] Address Unknown Phone Unavailable [...]
--- NOTE | 2017-08-06 18:14 | Urgent Treatment Center Report ---
History of Present Issue Date/Time Seen by Provider 08/06/171808 Visit Reason Pt arrived:Wheelchair Presenting Problem:STEPPED ON A PINECONE AND IT ROLLED WITH HIM; HE THEN PROCEEDED TO FALL, LANDING ON HIS RIGHT SHOULDER. STATES HE HAD HIS HANDS ON HEAD HE FELL; NO LOC. PT A&OX4. Location if Accident: Onset of symptoms date/time:08/06/1703/16/1530 or onset unknown for: Have you (or family members/close friends) recently traveled outside the [place]? N If Yes, where/when: Have you had exposure to infectious disease within the past month? TB? Other? Specify: Patient states that he was walking when he stepped on some pine cones and slipped and lost his footing and fell landing on his right shoulder and rib area States that he did not loose conciousness however he did feel like he felt something break in his rib area State that he has had fractured ribs before and it feels alot like it did then ALLERGIES Coded Allergies: Penicillins (Mild, 04/29/17) clindamycin (Mild, 04/29/17) azithromycin (04/29/17) Home Medications Reported Medications Ciprofloxacin HCl 500 MG PO BID #20 CHOLECALCIFEROL (VITAMIN D3) (Vitamin D3) 400 IU PO DAILY ASPIRIN (Aspirin) 325 MG PO DAILY Loratadine 10 MG PO DAILY Diphenhydramine Hcl (Benadryl 50MG Cap) 50 MG PO Q4-6H PRN LISINOPRIL (Lisinopril) 2.5 MG PO DAILY CALCIUM CARBONATE (Calcium) 600 MG PO DAILY Atenolol (Atenolol) 25 MG PO DAILY OMEPRAZOLE MAGNESIUM (Prilosec OTC) 20 MG PO DAILY Lorazepam (Lorazepam 0.5MG) 0.5 MG FT QHS Acetaminophen W/ Hydrocodone (Lortab 5/500) 1 TAB PO Q4HP FENOFIBRATE NANOCRYSTALLIZED (Tricor) 145 MG PO DAILY Lovastatin 40 MG PO DAILY History Medical History General Angina: No DE: No Hypertension? Yes Hyperlipidemia? Yes CHF? No COPD? No Asthma? No Hernia? Yes CVA? No Seizures? No Diabetes? Yes Insulin Dependent: Yes Insulin Pump: No Home FSBS? Yes UTI? No Stones? No GB Disease: No Hepatitis? No Arthritis? Yes Cataracts? Yes Glaucoma? No MRSA? No TB? No Cancer? No More? No Immunization HX DT/Tetanus > 10 Years Ago Flu Refused Pneumonia Never Had Surgical Hx Previous Surgery?Y HERNIA REPAIR CATARACT Family History Family HX Diabetes Yes CAD Yes Hypertension Yes Hyperlipidemia Yes Cancer No TB No Social History Smoking Hx Smoker: Never Smoker Tobacco: No Packs/day N/A Alcohol Alcohol: No Review of Systems All Other Systems Reviewed and Negative Musculoskeletal other (right rib pain) Comment Pain in right shoulder and rib area after falling Physical Exam Vital Signs Vital Signs Date Time Temp Pulse Resp B/P Pulse O2 O2 Flow FiO2 Ox Delivery Rate 08/06 1742 98.1 62 18 127/61 96 08/06 1621 98.1 62 18 127/61 96 General Appearance normal appearance, WD/WN, no apparent distress Respiratory Status Yes: trachea midline, chest symmetrical, non tender chest. No: respiratory distress. Lung Sounds bilateral: normal breath sounds, lungs clear. Cardiovascular normal exam, Pain in right rib area with some minor bruising noted Extremities Pain in right shoulder area after falling, no bruising or swelling at this time Neurologic alert, normal exam, oriented x 3 Medical Decision Making LABS/Meds/Orders Pt receiving controlled substance in ED? No Results/Orders Orders Procedure Date/time Status [id number] VIEWS 08/06 1800 Active [id number] VIEWS 08/06 1745 Active XRAY/CT/US XRAY/CT/US XRAY rib, shoulder XR interpretation by reviewed by me Xray Results Fractures of the ribs 6,7,8 no fracture seen in shoulder Comment Discussed with Dr Vidal Progress [facility] Progress Notes Comment Called Orthopedics and spoke with Dr Garza advised to have patient follow up with family doctor. Patient unable to take most pain medication due to Kidney function advised that he was only permitted to take Tylneol advise patient to take Tylenol and follow up with family doctor if he needed something stronger Departure Departure Time of Disposition 1829 Disposition DC Home or Self Care(routine) Clinical Impression Primary Impression: Rib fracture Qualifiers: Encounter type: initial encounter Rib fracture type: multiple ribs Fracture type: closed Laterality: right Qualified Code: S22.41XA - Multiple fractures of ribs, right side, initial encounter for closed fracture Condition STABLE Referrals Jannette Churchill APRN (Family): [facility] Patient Instructions DI for Rib Fracture, Rib Fracture Additional Instructions Follow up with family doctor as advised Return if needed If you began having any trouble breathing go straight to ER Discharge Counseling Counseled pt/family regarding diagnosis, test results, home care, follow up needs at [phone]
[2017-08-06 18:33] VITALS: BP 127/61
--- NOTE | 2017-08-07 05:48 | RADIOLOGY REPORT PS360 ---
[id number] VIEWS HISTORY: Posttraumatic pain. FELL AT HOME ORDERING PHYSICIAN: CHIP JORDAN APRN PATIENT AGE: 77 years COMPARISON: None FINDINGS: There are osteoarthritic changes of the acromioclavicular joint and glenohumeral joint with severe subacromial stenosis consistent with rotator cuff tear. There are displaced fractures of the right sixth and seventh ribs. No glenohumeral fracture evident. There is a faint lucency overlying the proximal to mid shaft of the humerus at 16 mm raising the suspicion of a lytic lesion. Humerus films may be of further value. IMPRESSION: 1. No acute shoulder fracture. 2. 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 3. Right sixth and seventh rib fractures displaced. 4. Possible lytic lesion of the mid to proximal shaft of the humerus
--- NOTE | 2017-08-07 06:07 | RADIOLOGY REPORT PS360 ---
[id number] VIEWS HISTORY: Right-sided chest pain following injury FALL ORDERING PHYSICIAN: CHIP JORDAN APRN PATIENT AGE: 77 years COMPARISON: None FINDINGS: A frontal view of the chest shows cardiomegaly without failure. There are mildly displaced fractures involving the right sixth and seventh ribs posterior laterally. No obvious pneumothorax. Nondisplaced fracture involves right eighth rib. IMPRESSION: Displaced fractures of the right sixth and seventh rib with nondisplaced fracture of the right eighth rib
[2017-08-13] MEDS ORDERED: CLOPIDOGREL75 M2 PO (11:45)
== END 2017-08-06 18:34 | disposition home or self-care (01) ==
LOC: ER 16:12 → UTC 16:12 → ER 16:25 → UTC 16:25
DX: S22.41XA Multiple fractures of ribs, right side, initial encounter for closed fracture (principal)